=== PATIENT | male | born 1990 | race Caucasian/White ===

== ENCOUNTER 2020-11-04 06:04 | Emergency (ER) | payer BC ==
[~2020-11-04] VITALS: Ht 167.6 cm; Wt 75.0 kg
[2020-11-04] MEDS ORDERED: ONDANSETRON 2MG/ML, 2ML ONE (06:49)
[2020-11-04] MEDS ORDERED: FAMOTIDINE 20 MG/2 ML ONE (06:50)
--- NOTE | 2020-11-04 06:55 | NUR ---
PT RESTING IN BED. VSS. PT TREMBLING/SHIVERING BUT DENIES BEING COLD
[2020-11-04] MEDS ORDERED: ONDANSETRON 2MG/ML, 2ML IVPush ONE (07:00)
[2020-11-04] MEDS ORDERED: SODIUM CHLORIDE 0.9% 1,000ML IVBOLUS ONE (07:00)
[2020-11-04] MEDS ORDERED: FAMOTIDINE 20 MG/2 ML IV ONE (07:00)
[2020-11-04] MEDS ORDERED: SODIUM CHLORIDE FLUSH 10ML SYR IVF ONE (07:00)
[2020-11-04 07:02] LABS: BASOPHILS % (AUTO) 1 % (0-1); EOSINOPHILS % (AUTO) 1 % (1-7); LYMPHOCYTES % (AUTO) 17 % (22-44); MEAN CORPUSCULAR HEMOGLOBIN 33.2 pg (27.5-34.5); MEAN CORPUSCULAR HGB CONC 34.6 g/dL (33.2-36.2); MEAN PLATELET VOLUME 8.1 fL (7.4-10.4); MONOCYTES % (AUTO) 16 % (2-9); NEUTROPHILS % (AUTO) 65 % (42-75); PLATELET COUNT 188 x10^3/uL (130-400); RED BLOOD COUNT 4.72 x10^6/uL (4.38-5.82); RED CELL DISTRIBUTION WIDTH 14.2 % (9.4-14.8)
[2020-11-04 07:04] LABS: MD NO
[2020-11-04] MEDS ORDERED: LORazepam 2 MG/ML, 1ML ONE (07:04)
[2020-11-04 07:12] LABS: ALBUMIN 4.5 g/dL (3.4-5.0); ANION GAP 8 mmol/L (5-15); CALCIUM 8.9 mg/dL (8.5-10.1); CHLORIDE 105 mmol/L (98-107)
[2020-11-04 07:15] LABS: ALANINE AMINOTRANSFERASE 249 U/L (12-78); ALKALINE PHOSPHATASE 98 U/L (45-117); CREATININE 0.99 mg/dL (0.7-1.3)
[2020-11-04] MEDS ORDERED: LORazepam 2 MG/ML, 1ML IVPush ONE (07:30)
--- NOTE | 2020-11-04 07:51 | NUR ---
TASK RN NOTE: PT LAYING RECLINED IN BED, ASLEEP. NAD NOTED AT THIS TIME. PT SATURATING WELL ON RA. SIDE RAILS UP, CALL LIGHT IN REACH.
--- NOTE | 2020-11-04 08:03 | NUR ---
pt states he is feeling better. no shaking noted. "i actually got some sleep. i feel a little better, but moved my head quickly and still got nauseous."
[2020-11-04] MEDS ORDERED: LACTATED RINGERS 1,000 ML IVBOLUS ONE (09:00)
--- NOTE | 2020-11-04 09:18 | NUR ---
pt tolerated water and crackers. is now sleeping in bed.
[2020-11-04 09:46] VITALS: BP 160/111
--- NOTE | 2020-11-04 09:46 | NUR ---
pt moved to sitting then standing position. denies dizziness with movement. vss but is hypertensive at bedside.
--- NOTE | 2020-11-04 10:07 | NUR ---
ambulates from ED without complication.
== END 2020-11-04 10:08 | disposition home or self-care (01) ==
LOC: ED 08:18
DX: F10.239 Alcohol dependence with withdrawal, unspecified (principal); Z20.822 Contact with and (suspected) exposure to COVID-19; B34.9 Viral infection, unspecified; R11.2 Nausea with vomiting, unspecified; R19.7 Diarrhea, unspecified; I10 Essential (primary) hypertension; E78.5 Hyperlipidemia, unspecified; Y90.9 Presence of alcohol in blood, level not specified
CPT/HCPCS: 36415; 80053; 83690; 85025; 87635; 93005; 96361; 96374; 96375; 99285; J2060; J2405; J7030; J7120

== ENCOUNTER 2021-05-12 09:35 | Emergency (ER) | payer SELFPAY ==
[~2021-05-12] VITALS: Ht 167.6 cm; Wt 82.2 kg
[2021-05-12 10:21] LABS: BASOPHILS % (AUTO) 1 % (0-1); EOSINOPHILS % (AUTO) 2 % (1-7); LYMPHOCYTES % (AUTO) 14 % (22-44); MEAN CORPUSCULAR HEMOGLOBIN 32.8 pg (27.5-34.5); MEAN CORPUSCULAR HGB CONC 34.7 g/dL (33.2-36.2); MEAN PLATELET VOLUME 7.9 fL (7.4-10.4); MONOCYTES % (AUTO) 10 % (2-9); NEUTROPHILS % (AUTO) 73 % (42-75); PLATELET COUNT 170 x10^3/uL (130-400); RED BLOOD COUNT 4.95 x10^6/uL (4.38-5.82); RED CELL DISTRIBUTION WIDTH 12.7 % (9.4-14.8)
[2021-05-12 10:32] LABS: ALBUMIN 3.8 g/dL (3.4-5.0); ANION GAP 8 mmol/L (5-15); CHLORIDE 103 mmol/L (98-107); CREATININE 0.93 mg/dL (0.7-1.3)
--- NOTE | 2021-05-12 11:08 | NUR ---
PT WALKED BACK FROM TRIAGE SEMT FORM UC FOR WORSENING COUGH X1 WEEK AND HIGH BP/ PT DENIES DIZZINESS, CP, VISION CHANGES, RECENT TRAUMA.
[2021-05-12 11:12] VITALS: BP 152/118
[2021-05-12] MEDS ORDERED: VALSARTAN 320 MG TABLET PO SCH (11:30)
--- NOTE | 2021-05-12 11:34 | NUR ---
MEDS REQUESTED FROM PHARMACY
[2021-05-12 11:38] LABS: MICROSCOPIC NOT IND
--- NOTE | 2021-05-12 11:57 | NUR ---
kristopher instructrions reviewed
== END 2021-05-12 11:59 | disposition home or self-care (01) ==
LOC: ED 11:40
DX: J01.00 Acute maxillary sinusitis, unspecified (principal); I10 Essential (primary) hypertension; E78.5 Hyperlipidemia, unspecified; R07.89 Other chest pain
CPT/HCPCS: 36415; 71045; 80048; 81003; 82040; 85025; 87081; 87880; 93005; 99285